=== PATIENT | female | born 1995 ===

== ENCOUNTER 2021-09-04 14:08 | Emergency (ER) | payer SELFPAY ==
[2021-09-04 15:22] LABS: Amorphous Crystals,Urine Few; Bilirubin,Urine NEG (Negative); Blood,Urine NEG (Negative); Color,Urine Yellow (Yellow); Mucus,Urine FEW /HPF; Protein,Urine <15 mg/dL mg/dL (Negative); Urobilinogen,Urine < 2.0 mg/dL (<2.0)
[2021-09-04 15:27] LABS: Amphetamine Screen,Urine Negative; Benzodiazepines Screen,Urine Negative; Methadone Screen,Urine Negative; Opiate Screen,Urine Negative
[2021-09-04 15:45] LABS: Cannabinoid Screen,Urine Positive; Cocaine Screen,Urine Positive
--- NOTE | 2021-09-04 16:10 | Emergency Department Report ---
HPI - General Chief Complaint: Psych Time Seen by Provider: 09/04/21 15:40 - HPI HPI: Room 15 The patient is a 26-year-old female present with a chief complaint of suicidal ideation. The patient states she is felt suicidal for the past couple of weeks primarily secondary to homelessness. The patient states she called the suicide prevention line today and was eventually transported to the ED. Patient denies making any attempts at harming herself but states her plan was to "jump in water." ED Past Medical Hx - Past Medical History Previous Medical History?: Yes Hx Psychiatric Treatment: Yes (DEPRESSION, ANXIETY, BORDERLINE PERSONALITY DISORDER) - Family History Family history: no significant - Social History Smoking Status: Current Some Day Smoker Substance Use Type: Alcohol (Occasional), Marijuana ED Review of Systems ROS: Stated complaint: SI Other details as noted in HPI Constitutional: no symptoms reported Eyes: denies: eye pain ENT: denies: throat pain Respiratory: no symptoms reported Cardiovascular: denies: chest pain Endocrine: no symptoms reported Gastrointestinal: denies: abdominal pain Genitourinary: denies: dysuria Musculoskeletal: denies: back pain Neurological: denies: headache Psychiatric: suicidal thoughts ( ) Physical Exam - Physical Exam Vital Signs: Vital Signs 09/04/21 14:11 Temperature 98.1 F Pulse Rate 88 Respiratory 18 Rate Blood Pressure 159/104 [Left] O2 Sat by Pulse 98 Oximetry Physical Exam: GENERAL: The patient is well-developed well-nourished female lying on stretcher not appearing to be in acute distress. [] HEENT: Normocephalic. Atraumatic. Extraocular motions are intact. Patient has moist mucous membranes. NECK: Supple. Trachea midline CHEST/LUNGS: Clear to auscultation. There is no respiratory distress noted. HEART/CARDIOVASCULAR: Regular. There is no tachycardia. There is no gallop rub or murmur. ABDOMEN: Abdomen is soft, nontender. Patient has normal bowel sounds. There is no abdominal distention. SKIN: There is no rash. There is no edema. There is no diaphoresis. NEURO: The patient is awake, alert, and oriented. The patient is cooperative. The patient has no focal neurologic deficits. The patient has normal speech. GCS 15 MUSCULOSKELETAL: There is no evidence of acute injury. ED Course Vital Signs 09/04/21 14:11 Temperature 98.1 F Pulse Rate 88 Respiratory 18 Rate Blood Pressure 159/104 [Left] O2 Sat by Pulse 98 Oximetry ED Medical Decision Making - Lab Data Result diagrams: 09/04/21 16:54 09/04/21 16:54 Laboratory Tests 09/04/21 09/04/21 09/04/21 16:54 16:54 16:54 WBC 10.2 RBC 4.80 Hgb 12.6 Hct 41.4 MCV 86 MCH 26 L MCHC 31 RDW 14.7 Plt Count 360 Lymph % (Auto) 25.9 [place] % (Auto) 8.0 H Eos % (Auto) 1.8 Baso % (Auto) 1.2 Lymph # (Auto) 2.6 [place] # (Auto) 0.8 Eos # (Auto) 0.2 Baso # (Auto) 0.1 Seg Neutrophils % 63.1 Seg Neutrophils # 6.4 Sodium 143 Potassium 3.5 L Chloride 103.4 Carbon Dioxide 25 Anion Gap 18 BUN 6 L Creatinine 0.7 Estimated GFR > 60 BUN/Creatinine Ratio 9 Glucose 101 H Calcium 8.9 HCG, Qual Urine Color Urine Turbidity Urine pH Ur Specific [place] Urine Protein Urine Glucose (UA) Urine Ketones Urine Blood Urine Nitrite Urine Bilirubin Urine Urobilinogen Ur Leukocyte Esterase Urine WBC (Auto) Urine RBC (Auto) U Epithel Cells (Auto) Amorphous Crystals Urine Mucus Salicylates < 0.3 L Urine Opiates Screen Urine Methadone Screen Acetaminophen Ur Barbiturates Screen Ur Phencyclidine Scrn Ur Amphetamines Screen U Benzodiazepines Scrn Urine Cocaine Screen U Marijuana (THC) Screen Drugs of Abuse Note Plasma/Serum Alcohol 09/04/21 09/04/21 09/04/21 16:54 16:54 16:54 WBC RBC Hgb Hct MCV MCH MCHC RDW Plt Count Lymph % (Auto) [place] % (Auto) Eos % (Auto) Baso % (Auto) Lymph # (Auto) [place] # (Auto) Eos # (Auto) Baso # (Auto) Seg Neutrophils % Seg Neutrophils # Sodium Potassium Chloride Carbon Dioxide Anion Gap BUN Creatinine Estimated GFR BUN/Creatinine Ratio Glucose Calcium HCG, Qual Negative Urine Color Urine Turbidity Urine pH Ur Specific [place] Urine Protein Urine Glucose (UA) Urine Ketones Urine Blood Urine Nitrite Urine Bilirubin Urine Urobilinogen Ur Leukocyte Esterase Urine WBC (Auto) Urine RBC (Auto) U Epithel Cells (Auto) Amorphous Crystals Urine Mucus Salicylates Urine Opiates Screen Urine Methadone Screen Acetaminophen 5.0 L Ur Barbiturates Screen Ur Phencyclidine Scrn Ur Amphetamines Screen U Benzodiazepines Scrn Urine Cocaine Screen U Marijuana (THC) Screen Drugs of Abuse Note Plasma/Serum Alcohol < 0.01 09/04/21 09/04/21 Unknown Unknown WBC RBC Hgb Hct MCV MCH MCHC RDW Plt Count Lymph % (Auto) [place] % (Auto) Eos % (Auto) Baso % (Auto) Lymph # (Auto) [place] # (Auto) Eos # (Auto) Baso # (Auto) Seg Neutrophils % Seg Neutrophils # Sodium Potassium Chloride Carbon Dioxide Anion Gap BUN Creatinine Estimated GFR BUN/Creatinine Ratio Glucose Calcium HCG, Qual Urine Color Yellow Urine Turbidity Cloudy Urine pH 7.0 Ur Specific [place] 1.013 Urine Protein <15 mg/dl Urine Glucose (UA) Neg Urine Ketones Neg Urine Blood Neg Urine Nitrite Neg Urine Bilirubin Neg Urine Urobilinogen < 2.0 Ur Leukocyte Esterase Neg Urine WBC (Auto) 1.0 Urine RBC (Auto) 2.0 U Epithel Cells (Auto) 2.0 Amorphous Crystals Few Urine Mucus Few Salicylates Urine Opiates Screen Negative Urine Methadone Screen Negative Acetaminophen Ur Barbiturates Screen Negative Ur Phencyclidine Scrn Negative Ur Amphetamines Screen Negative U Benzodiazepines Scrn Negative Urine Cocaine Screen Positive U Marijuana (THC) Screen Positive Drugs of Abuse Note Disclamer Plasma/Serum Alcohol - Differential Diagnosis Suicidal ideation Critical care attestation.: If time is entered above; I have spent that time in minutes in the direct care of this critically ill patient, excluding procedure time. ED Disposition Clinical Impression: Suicidal ideation, Cocaine abuse Disposition: [address] [place] [address] Is pt being admited?: No Does the pt Need Aspirin: No Condition: Fair Referrals: PRIMARY CARE, [Primary Care Provider] - 3-5 Days Time of Disposition: 17:38 (Awaiting acceptance)
[2021-09-04 17:12] LABS: Basophils # (Auto) 0.1 K/mm3 (0.0-0.1); Basophils % (Auto) 1.2 % (0.0-1.8); Eosinophils # (Auto) 0.2 K/mm3 (0.0-0.4); Eosinophils % (Auto) 1.8 % (0.0-4.3); Lymphocytes # (Auto) 2.6 K/mm3 (1.2-5.4); Lymphocytes % (Auto) 25.9 % (13.4-35.0); Mean Corpuscular HGB Conc 31 % (30-34); Mean Corpuscular Volume 86 fl (79-97); Monocytes # (Auto) 0.8 K/mm3 (0.0-0.8); Platelet Count 360 K/mm3 (140-440); Red Cell Distribution Width 14.7 % (13.2-15.2)
[2021-09-04 17:28] LABS: Blood Urea Nitrogen 6 mg/dL (7-17); Calcium 8.9 mg/dL (8.4-10.2); Hemolysis Index 3
[2021-09-04 17:30] LABS: Hematocrit 41.4 % (30.3-42.9); Hemoglobin 12.6 gm/dl (10.1-14.3)
[2021-09-04 17:31] LABS: BUN/Creatinine Ratio 9
[2021-09-05 10:34] VITALS: BP 154/76
--- NOTE | 2021-09-05 11:51 | Consultation ---
History of Present Illness - Reason for Consult Consult date: 09/05/21 Reason for consult: Mental health evaluation - History of Present Psychiatric Illness ED Note: The patient is a 26-year-old female present with a chief complaint of suicidal ideation. The patient states she is felt suicidal for the past couple of weeks primarily secondary to homelessness. The patient states she called the suicide prevention line today and was eventually transported to the ED. Patient denies making any attempts at harming herself but states her plan was to "jump in water." Eri Salinas is a 26 yea old female with history of BPD and anxiety disorder. In my interview with the patient, she is calm, alert and oriented x3. The patient reports being homeless and was trying to get a room in a hotel, stating that she asked her mother for money who she states refused. 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 She denies any current suicidal/homicidal ideation and denies hallucination. PAST PSYCHIATRIC HISTORY Diagnoses: BPD, Anxiety Suicide attempts or Self-harm behavior: Yes Prior psychiatric hospitalizations: Yes Substance Abuse history:marijuana, cocaine Previous psychiatric medications tried: Denies Outpatient treatment: Denies PAST MEDICAL HISTORY: None reported Family Psychiatric History: None reported or documented SOCIAL HISTORY Marital Status: Single Living Arrangements: Homeless Access to guns/weapons: Denies Education:Some college History of Abuse: Denies Legal History: None reported REVIEW OF SYSTEMS Constitutional: Negative for weight loss ENT: Negative for stridor Respiratory: Negative for cough or hemoptysis All other systems reviewed and are negative MENTAL STATUS EXAMINATION General Appearance and Behavior: Age appropriate, good hygiene, not wearing appropriate clothes, good eye contact, cooperative polite with questioning. Cooperation: Participating/engaged Psychomotor Behavior: Psychomotor normal Mood:"ok" Affect and affective range:congruent with stated mood Thought Process: Goal directed Thought Content: Reality oriented Speech: normal tone and pace Suicidal Ideation:Denies Homicidal Ideation: Denies HI Hallucinations: Denies Delusions: None elicited Impulse Control: Limited Insight and Judgment: Limited insight and good judgment Memory: Normal Attention: Normal Orientation: Alert, oriented, Assessment and [place] [id number] Case management Restart home meds Medical: Per primary Sitter: Defer to primary Disposition: Do not recommend acute inpatient treatment. Online Content Developer will provide patient with psychiatric out patient resources. Will sign off. Medications and Allergies Medications and Allergies Allergies Allergy/AdvReac Type Severity Reaction Status Date / Time No Known Allergies Allergy Unverified 09/04/21 14:14 Mental Status Exam - Vital signs Last Vital Signs Temp 98.2 F 09/05/21 10:33 Pulse 74 09/05/21 10:33 Resp 18 09/05/21 10:33 BP 154/76 09/05/21 10:33 Pulse Ox 100 09/05/21 10:33 Results Result Diagrams: 09/04/21 16:54 09/04/21 16:54 Abnormal lab results 09/04/21 09/04/21 09/04/21 Range/Units 16:54 16:54 16:54 MCH 26 L (28-32) pg [place] % (Auto) 8.0 H (0.0-7.3) % Potassium 3.5 L (3.6-5.0) mmol/L BUN 6 L (7-17) mg/dL Glucose 101 H (65-100) mg/dL Salicylates < 0.3 L (2.8-20.0) mg/dL Acetaminophen (10.0-30.0) ug/mL 09/04/21 Range/Units 16:54 MCH (28-32) pg [place] % (Auto) (0.0-7.3) % Potassium (3.6-5.0) mmol/L BUN (7-17) mg/dL Glucose (65-100) mg/dL Salicylates (2.8-20.0) mg/dL Acetaminophen 5.0 L (10.0-30.0) ug/mL All other labs normal.
== END 2021-09-05 12:11 | disposition home or self-care (01) ==
LOC: ED 14:08
DX: R45.851 Suicidal ideations (principal); F14.10 Cocaine abuse, uncomplicated; F60.3 Borderline personality disorder; F17.200 Nicotine dependence, unspecified, uncomplicated; F12.90 Cannabis use, unspecified, uncomplicated; Z20.822 Contact with and (suspected) exposure to COVID-19
CPT/HCPCS: 36415; 80048; 80307; 81001; 84703; 85025; 99284; U0003; 80320; G0480